=== PATIENT | female | born 1990 | race Caucasian/White ===

== ENCOUNTER 2016-12-29 21:40 | Emergency (ER) | payer OTHER ==
[~2016-12-29] VITALS: Ht 167.6 cm; Wt 87.1 kg
[~2016-12-29 21:40] MED LIST: AMOXICILLIN875 MG; BACTRIM,SEPT1 TABLET PO; CELEXA20 MG PO; CIPRO250 MG PO; FLAGYL500 MG PO; KEFLEX500 MG PO; MOTRIN800 MG PO; Micronor,Nor-Q-D,Err PO; NASAL & SINUS D30 MG PO; NOHOMEMEDS; SPRINTEC1 EACH PO; TYLENOL W/ CODE10 ML PO; ZANTAC150 MG PO
[2016-12-29 22:23] LABS: HEMATOCRIT 39.4 % (36.0-46.0); MCHC 33.5 G/DL (30.0-36.0); MCV 92.5 FL (83-99); MEAN PLAT.VOLUME 11.2 uM^3 (9.5-12.4); PLATELET COUNT 188 K/uL (156-360); RBC DIS.WIDTH-CV 11.9 % (11.8-14.6); RBC DIS.WIDTH-SD 40.1 % (39-53); RED BLOOD COUNT 4.26 M/uL (3.80-5.20); WHITE BLOOD COUNT 10.7 K/uL (4.1-10.2)
[2016-12-29 22:29] LABS: ADD MIUA? NO; BILIRUBIN NEGATIVE; BLOOD NEGATIVE; COLOR YELLOW ((YELLOW)); GLUCOSE (STRIP) NEGATIVE; KETONES NEGATIVE; LEUKOCYTES NEGATIVE; NITRITE NEGATIVE; PROTEIN (STRIP) NEGATIVE; SPECIFIC GRAVITY 1.031 (1.000-1.030); UCUL ADDED? NO; UROBILINOGEN 0.2 MG/DL (0.2-1.0)
[2016-12-29 22:32] LABS: CHLORIDE 108 mEq/L (99-109); POTASSIUM 3.9 mEq/L (3.7-5.4); SODIUM 139 mEq/L (136-147)
[2016-12-29 22:35] LABS: GLUCOSE 94 mg/dL (70-99)
[2016-12-29 22:36] LABS: ANION GAP 9 MEQ/L (2-14); TOTAL BILIRUBIN 0.7 mg/dL (0.0-1.0)
[2016-12-29 22:38] LABS: ALKALINE PHOSPHATASE 56 IU/L (3-129); GFR ESTIMATE (CALCULATED) > 59 mL/min/
[2016-12-29 22:39] LABS: UREA NITROGEN (BUN) 13 mg/dL (9-23)
[2016-12-29 22:47] LABS: QUANTITATIVE HCG 235.4 MIU/ML
[2016-12-30 01:15] VITALS: BP 124/91
== END 2016-12-30 01:15 | disposition home or self-care (01) ==
LOC: EME 21:40 → EXP 21:40
DX: O26.891 Other specified pregnancy related conditions, first trimester (principal); R10.32 Left lower quadrant pain; Z3A.01 Less than 8 weeks gestation of pregnancy
CPT/HCPCS: 76801; 80053; 81003; 84702; 85027; 99281; 99283

== ENCOUNTER → 2017-06-13 | Outpatient (CLI) | payer OTHER ==
[~2017-06-13] VITALS: Ht 166.4 cm; Wt 81.7 kg
[~2017-06-13] MED LIST changes: +WELLBUTRIN SR150 MG PO
== END | disposition home or self-care (01) ==
LOC: AMB 11:44
PROC: 0DBP8ZX Excision of Rectum, Via Natural or Artificial Opening Endoscopic, Diagnostic (ICD-10-PCS; principal; 2017-06-13)
DX: K62.1 Rectal polyp (principal); K21.9 Gastro-esophageal reflux disease without esophagitis; F32.9 Major depressive disorder, single episode, unspecified; E66.9 Obesity, unspecified; Z68.29 Body mass index [BMI] 29.0-29.9, adult; Z80.3 Family history of malignant neoplasm of breast; Z80.0 Family history of malignant neoplasm of digestive organs; Z84.81 Family history of carrier of genetic disease; Z15.09 Genetic susceptibility to other malignant neoplasm
CPT/HCPCS: 88305; J2250; J3010